=== PATIENT | female | born 1955 | race Caucasian/White ===

== ENCOUNTER → 2021-02-10 | Outpatient (CLI) | payer MEDICARE, OTHER | END | disposition home or self-care (01) | LOC: LAB 06:57 | PROVIDERS: ATTEND Surgery | DX: Z01.812 Encounter for preprocedural laboratory examination (principal); Z20.822 Contact with and (suspected) exposure to COVID-19 ==

== ENCOUNTER 2021-02-12 08:47 | Day surgery (SDC) | payer MEDICARE, OTHER ==
[2021-02-12] MEDS ORDERED: PROPOFOL 200 MG/20 ML BOTTLE IV ONE (08:48)
[2021-02-12] MEDS ORDERED: NEOSTIGMINE METHYLSULFATE 10 MG/10 ML VIAL IM ONE (08:48)
[2021-02-12] MEDS ORDERED: CEFAZOLIN 1 G VIAL MC ONE (08:48)
[2021-02-12] MEDS ORDERED: GLYCOPYRROLATE 0.2 MG/ML VIAL MC ONE (08:48)
[2021-02-12] MEDS ORDERED: PHENYLEPHRINE 10 MG/1 ML VIAL MC ONE (08:48)
[2021-02-12] MEDS ORDERED: LIDOCAINE-MPF 2% 5 ML VIAL MC ONE (08:48)
[2021-02-12] MEDS ORDERED: ONDANSETRON 4 MG/2 ML VIAL IV ONE (08:48)
[2021-02-12] MEDS ORDERED: DEXAMETHASONE SOD PHOSPHATE 4 MG INJ IV ONE (08:48)
[2021-02-12] MEDS ORDERED: LIDOCAINE 1%-EPI 1:100,000 20 ML VIAL ONE (09:38)
[2021-02-12] MEDS ORDERED: BUPIVACAINE PF 0.5% 30 ML VIAL ONE (09:39)
[2021-02-12] MEDS ORDERED: BACITRACIN ZINC OINT 15 GM TUBE ONE (09:39)
[2021-02-12] MEDS ORDERED: ROCURONIUM BROMIDE 50 MG/5 ML VIAL ONE (09:48)
[2021-02-12] MEDS ORDERED: FENTANYL CITRATE 100 MCG/2 ML AMPUL ONE (09:48)
[2021-02-12] MEDS ORDERED: ACETAMINOPHEN 325 MG TABLET ONE (11:21)
[2021-02-12] MEDS ORDERED: ACETAMINOPHEN 325 MG TABLET PO ONE (11:30)
[2021-02-12] MEDS ORDERED: GABAPENTIN 300 MG CAPSULE PO ONE (11:30)
[2021-02-12] MEDS ORDERED: IBUPROFEN 800 MG TABLET PO ONE (11:30)
== END 2021-02-12 12:37 | disposition home or self-care (01) ==
LOC: DS 08:47
PROVIDERS: ATTEND Surgery
DX: K60.1 Chronic anal fissure (principal); K64.8 Other hemorrhoids; K62.5 Hemorrhage of anus and rectum; K62.4 Stenosis of anus and rectum; K62.89 Other specified diseases of anus and rectum; I10 Essential (primary) hypertension; K21.9 Gastro-esophageal reflux disease without esophagitis; Z79.899 Other long term (current) drug therapy; Z98.890 Other specified postprocedural states; Z82.49 Family history of ischemic heart disease and other diseases of the circulatory system
CPT/HCPCS: 46200; 46260; J0690; J1100; J2370; J2405; J3010; J3490 ×5; A4649; A4663